=== PATIENT | female | born 1955 | race African-American/Black ===

== ENCOUNTER 2017-12-14 13:54 | Emergency (ER) | payer MEDICARE, MEDICAID ==
[~2017-12-14] VITALS: Ht 172.7 cm; Wt 77.3 kg
[2017-12-14] MEDS ORDERED: HYDROCODONE/ACETAMINOPHEN 5-325 MG TABLET PO ONE (14:30)
[2017-12-14] MEDS ORDERED: KETOROLAC TROMETHAMINE 30 MG/ML VIAL IM ONE (15:15)
[2017-12-14 16:32] VITALS: BP 136/78
[2017-12-14 16:45] LABS: APPEARANCE,URINE CLEAR (CLEAR); BILIRUBIN,URINE NEGATIVE (NEGATIVE); GLUCOSE, URINE (UA) NEGATIVE (NEGATIVE); KETONES,URINE NEGATIVE (NEGATIVE); LEUKOCYTE ESTERASE ,URINE NEGATIVE (NEGATIVE); NITRATE,URINE NEGATIVE (NEGATIVE); OCCULT BLOOD,URINE NEGATIVE (NEGATIVE); PROTEIN,URINE NEGATIVE (NEGATIVE)
[2017-12-14 16:47] LABS: AMPHET/METH SCREEN,URINE NEGATIVE (NEGATIVE); BARBITURATE SCREEN, URINE NEGATIVE (NEGATIVE); BENZODIAZEPINES SCREEN,URINE POSITIVE (NEGATIVE); CANNABINOID SCREEN,URINE NEGATIVE (NEGATIVE); COCAINE SCREEN,URINE NEGATIVE (NEGATIVE); METHADONE SCREEN, URINE NEGATIVE (NEGATIVE); OPIATE SCREEN,URINE POSITIVE (NEGATIVE); PHENCYCLIDINE SCREEN,URINE NEGATIVE (NEGATIVE)
[2017-12-14 16:55] LABS: RBC,URINE None Seen /HPF (0-2); WBC,URINE 0-2 /HPF (0-5)
[2017-12-14 16:57] LABS: BACTERIA,URINE Rare /HPF (None Seen); SQUAMOUS EPITHELIAL CELL,UR Moderate /LPF (None Seen)
== END 2017-12-14 17:14 | disposition home or self-care (01) ==
LOC: EMS 13:56
DX: M25.561 Pain in right knee (principal); M25.562 Pain in left knee; M54.5 Low back pain; G89.29 Other chronic pain; M19.90 Unspecified osteoarthritis, unspecified site; F17.210 Nicotine dependence, cigarettes, uncomplicated
CPT/HCPCS: 80307; 81001; 96372; 99284; 99406; J1885

== ENCOUNTER 2018-02-01 11:10 | Emergency (ER) | payer MEDICAID, MEDICARE ==
[~2018-02-01] VITALS: Ht 170.2 cm; Wt 77.3 kg
[2018-02-01] MEDS ORDERED: TraMADol HCL 50 MG TABLET PO ONE (12:30)
[2018-02-01 13:30] VITALS: BP 147/94
== END 2018-02-01 14:09 | disposition home or self-care (01) ==
LOC: EMS 11:12
DX: M25.562 Pain in left knee (principal); M25.561 Pain in right knee; M54.5 Low back pain; G89.29 Other chronic pain; M19.90 Unspecified osteoarthritis, unspecified site; Z76.0 Encounter for issue of repeat prescription
CPT/HCPCS: 99283

== ENCOUNTER 2018-02-17 12:48 | Emergency (ER) | payer MEDICARE ==
[~2018-02-17] VITALS: Ht 170.2 cm; Wt 75.0 kg
[2018-02-17] MEDS ORDERED: TraMADol HCL 50 MG TABLET PO ONE (15:15)
[2018-02-17] MEDS ORDERED: KETOROLAC TROMETHAMINE 10 MG TABLET PO ONE (15:15)
[2018-02-17 15:54] VITALS: BP 140/83
== END 2018-02-17 15:55 | disposition home or self-care (01) ==
LOC: EMS 12:49
DX: G89.29 Other chronic pain (principal); M54.5 Low back pain; M25.562 Pain in left knee; M25.561 Pain in right knee; R51 Headache; M19.90 Unspecified osteoarthritis, unspecified site
CPT/HCPCS: 99283

== ENCOUNTER 2018-04-23 13:56 | Inpatient (IN) | payer MEDICARE, OTHER ==
[~2018-04-23] VITALS: Ht 172.7 cm; Wt 77.3 kg
[~2018-04-23 13:56] MED LIST: ESCI10TA PO; SIMV-260 PO
[2018-04-23] MEDS ORDERED: ESCI10TA PO (14:05)
[2018-04-23] MEDS ORDERED: NAPR250T4 PO (14:05)
[2018-04-23] MEDS ORDERED: ACET-2247 PO (14:05)
[2018-04-23 14:39] LABS: BASOPHILS % (AUTO) 0.7 % (0.0-2.0); EOSINOPHILS % (AUTO) 0.1 % (1.0-6.0); HEMATOCRIT 33.5 % (36-46); LYMPHOCYTES # (AUTO) 1.1 K/uL (1.0-4.8); LYMPHOCYTES % (AUTO) 11.3 % (22.0-44.0); MEAN CORPUSCULAR HEMOGLOBIN 29.7 pg (26.0-34.0); MEAN CORPUSCULAR HGB CONC 32.9 G/dL (31.0-37.0); MEAN CORPUSCULAR VOLUME 90 fL (80-100); MONOCYTES # (AUTO) 0.3 K/uL (0.1-1.0); MONOCYTES % (AUTO) 2.8 % (2.0-9.0); NEUTROPHILS # (AUTO) 8.2 K/uL (1.8-7.7); NEUTROPHILS % (AUTO) 85.1 % (40.0-70.0); PLATELET COUNT (AUTO) 226 K/uL (150-450); RED BLOOD CELL COUNT(AUTO) 3.71 MIL/uL (4.00-5.20); RED CELL DISTRIBUTION WIDTH 13.9 % (11.5-14.5)
[2018-04-23 14:49] LABS: ANION GAP 11 mmol/L (8-16); CALCIUM, TOTAL 10.2 mg/dL (8.8-10.5); CARBON DIOXIDE 26 mmol/L (22-29); CHLORIDE 103 mmol/L (98-107); CREATININE 0.83 mg/dL (0.60-1.30); GLOMERULAR FILTR. RATE CALC > 60 mL/min (>60); GLUCOSE,RANDOM 95 mg/dL (70-110); POTASSIUM 3.6 mmol/L (3.5-5.1); SODIUM SERUM 140 mmol/L (136-145); UREA NITROGEN, BLOOD 7 mg/dL (7-18)
[2018-04-23 14:55] LABS: ALANINE AMINOTRANSFERASE 19 U/L (12-78); ALBUMIN 4.1 g/dL (3.4-5.0); ALKALINE PHOSPHATASE 89 U/L (46-116); ASPARTATE AMINOTRANSFERASE 28 U/L (15-37); BILIRUBIN,TOTAL 0.5 mg/dL (0.1-1.0); TOTAL PROTEIN, SERUM 7.8 g/dL (6.4-8.2)
[2018-04-23 15:31] LABS: SALICYLATE 6.5 mg/dL (2.8-20.0)
[2018-04-23 15:37] LABS: APPEARANCE,URINE CLEAR (CLEAR); BILIRUBIN,URINE NEGATIVE (NEGATIVE); GLUCOSE, URINE (UA) NEGATIVE (NEGATIVE); KETONES,URINE TRACE mg/dL (NEGATIVE); LEUKOCYTE ESTERASE ,URINE NEGATIVE (NEGATIVE); NITRATE,URINE NEGATIVE (NEGATIVE); OCCULT BLOOD,URINE NEGATIVE (NEGATIVE); PROTEIN,URINE NEGATIVE (NEGATIVE); UROBILINOGEN,URINE 0.2 mg/dL (<=1.0)
[2018-04-23 15:40] LABS: AMPHET/METH SCREEN,URINE NEGATIVE (NEGATIVE); BARBITURATE SCREEN, URINE NEGATIVE (NEGATIVE); BENZODIAZEPINES SCREEN,URINE NEGATIVE (NEGATIVE); CANNABINOID SCREEN,URINE NEGATIVE (NEGATIVE); COCAINE SCREEN,URINE NEGATIVE (NEGATIVE); METHADONE SCREEN, URINE NEGATIVE (NEGATIVE); OPIATE SCREEN,URINE NEGATIVE (NEGATIVE)
[2018-04-23 15:42] LABS: PHENCYCLIDINE SCREEN,URINE NEGATIVE (NEGATIVE)
[2018-04-23 15:49] LABS: BACTERIA,URINE None Seen /HPF (None Seen); RBC,URINE 0-2 /HPF (0-2); SQUAMOUS EPITHELIAL CELL,UR Few /LPF (None Seen); WBC,URINE 0-2 /HPF (0-5)
[2018-04-23 16:04] LABS: ACETAMINOPHEN < 2 mcg/mL (10-30)
[2018-04-23] MEDS ORDERED: LORazepam 2 MG/ML VIAL IVP ONE (17:00)
[2018-04-23 17:26] LABS: PROTHROMBIN TIME 10.7 SEC (9.4-11.6)
[2018-04-23 18:21] LABS: CREATINE KINASE MB 13.7 ng/mL (0-5)
[2018-04-23] MEDS ORDERED: SODIUM CHLORIDE 0.9% 1,000 ML IV ONE (18:45)
[2018-04-23 19:34] LABS: ACETAMINOPHEN < 2 mcg/mL (10-30)
[2018-04-23] MEDS ORDERED: ACETAMINOPHEN 325 MG TABLET PO PRN ×2 (21:45→23:15)
[2018-04-23] MEDS ORDERED: ONDANSETRON HCL 4 MG/2 ML VIAL IVP PRN ×2 (21:45→23:15)
[2018-04-23] MEDS ORDERED: 0.9% SODIUM CHLORIDE 10 ML SYRINGE IVP PRN (21:45)
[2018-04-23 22:29] LABS: GLUCOSE,POINT OF CARE 90 MG/DL (70-110)
[2018-04-23] MEDS ORDERED: ALBUTEROL SULFATE 2.5 MG/0.5 ML NEB SOLUTION NEB PRN (23:15)
[2018-04-23] MEDS ORDERED: MAGNESIUM HYDROXIDE SUSPENSION 30 ML UDCUP PO PRN (23:15)
[2018-04-23] MEDS ORDERED: MORPHINE SULFATE 2 MG/ML SYRINGE IVP PRN (23:15)
[2018-04-23] MEDS ORDERED: ZOLPIDEM TARTRATE 5 MG TABLET PO PRN (23:15)
[2018-04-23] MEDS ORDERED: IPRATROPIUM BROMIDE 0.5 MG/2.5 ML NEB SOLUTION NEB PRN (23:15)
[2018-04-23] MEDS ORDERED: BISACODYL 10 MG RECTAL RECTAL SUPPOSITORY PR PRN (23:15)
[2018-04-23 23:30] VITALS: BP 155/94
[2018-04-23] MEDS: HEPARIN SODIUM,PORCINE 5,000 UNITS/ML VIAL SQ SCH (23:59)
[2018-04-23] MEDS: SODIUM CHLORIDE 0.9% 1,000 ML IV SCH (23:59)
[2018-04-24] MEDS: HYDROCODONE/ACETAMINOPHEN 5-325 MG TABLET PO PRN ×2 (02:11→08:04)
[2018-04-24 04:43] VITALS: BP 151/84
[2018-04-24 06:44] LABS: BASOPHILS % (AUTO) 0.7 % (0.0-2.0); EOSINOPHILS % (AUTO) 0.3 % (1.0-6.0); HEMATOCRIT 33.4 % (36-46); LYMPHOCYTES # (AUTO) 2.4 K/uL (1.0-4.8); LYMPHOCYTES % (AUTO) 32.5 % (22.0-44.0); MEAN CORPUSCULAR HEMOGLOBIN 29.7 pg (26.0-34.0); MEAN CORPUSCULAR HGB CONC 32.8 G/dL (31.0-37.0); MEAN CORPUSCULAR VOLUME 91 fL (80-100); MONOCYTES # (AUTO) 0.4 K/uL (0.1-1.0); NEUTROPHILS # (AUTO) 4.4 K/uL (1.8-7.7); NEUTROPHILS % (AUTO) 60.5 % (40.0-70.0); PLATELET COUNT (AUTO) 219 K/uL (150-450); RED BLOOD CELL COUNT(AUTO) 3.69 MIL/uL (4.00-5.20); RED CELL DISTRIBUTION WIDTH 13.6 % (11.5-14.5)
[2018-04-24 07:52] LABS: ALANINE AMINOTRANSFERASE 25 U/L (12-78); ALBUMIN 3.7 g/dL (3.4-5.0); ALKALINE PHOSPHATASE 84 U/L (46-116); ANION GAP 13 mmol/L (8-16); ASPARTATE AMINOTRANSFERASE 51 U/L (15-37); BILIRUBIN,TOTAL 0.6 mg/dL (0.1-1.0); CALCIUM, TOTAL 9.2 mg/dL (8.8-10.5); CARBON DIOXIDE 24 mmol/L (22-29); CHLORIDE 106 mmol/L (98-107); CKMB RELATIVE INDEX 0.4 % (0.0-4.0); CREATINE KINASE MB 6.2 ng/mL (0-5); CREATINE KINASE, TOTAL 1394 U/L (26-192); CREATININE 0.86 mg/dL (0.60-1.30); GLOMERULAR FILTR. RATE CALC > 60 mL/min (>60); GLUCOSE,RANDOM 71 mg/dL (70-110); POTASSIUM 3.1 mmol/L (3.5-5.1); SODIUM SERUM 143 mmol/L (136-145); TOTAL PROTEIN, SERUM 7.4 g/dL (6.4-8.2); UREA NITROGEN, BLOOD 6 mg/dL (7-18)
[2018-04-24 08:00] VITALS: BP 149/90
[2018-04-24] MEDS: SODIUM CHLORIDE 0.9% 1,000 ML IV SCH (08:05)
[2018-04-24] MEDS: HEPARIN SODIUM,PORCINE 5,000 UNITS/ML VIAL SQ SCH ×2 (08:05→16:00)
[2018-04-24] MEDS ORDERED: PANTOPRAZOLE SODIUM 40 MG DR TABLET PO SCH (09:00)
[2018-04-24] MEDS ORDERED: DOCUSATE SODIUM 100 MG CAPSULE PO SCH (09:00)
[2018-04-24 11:21] VITALS: BP 134/89
[2018-04-24] MEDS ORDERED: POTASSIUM CHLORIDE 20 MEQ ER TABLET PO ONE (13:30)
[2018-04-24 15:25] VITALS: BP 99/59
[2018-04-24] MEDS ORDERED: ATORVASTATIN CALCIUM 10 MG TABLET PO SCH (21:00)
== END 2018-04-24 16:05 | disposition short-term general hospital (02) | DRG 557 ==
LOC: EMS 13:57 → 6N 22:00
PROVIDERS: ADMIT Hospitalist; ATTEND Hospitalist
DX: M62.82 Rhabdomyolysis (principal); G93.40 Encephalopathy, unspecified; M54.9 Dorsalgia, unspecified; G89.29 Other chronic pain; F29 Unspecified psychosis not due to a substance or known physiological condition; M19.90 Unspecified osteoarthritis, unspecified site; F32.9 Major depressive disorder, single episode, unspecified; Z96.653 Presence of artificial knee joint, bilateral; Z83.3 Family history of diabetes mellitus; Z82.49 Family history of ischemic heart disease and other diseases of the circulatory system
CPT/HCPCS: 70450; 87081; 93005; 96374; 99285; G0480; G0481; J1644; J2060; J7030